=== PATIENT | female | born 1990 | race Caucasian/White ===

== ENCOUNTER 2016-08-30 09:42 | Outpatient (CLI) | payer OTHER, MEDICAID ==
[~2016-08-30] VITALS: Ht 160 cm; Wt 64.5 kg
[2016-08-30 10:17] VITALS: BP 103/62
[2016-08-30 10:33] LABS: AMNI OBC PASS; AMNISURE NEGATIVE (NEGATIVE)
[2016-08-30] MEDS ORDERED: iron (11:04)
[2016-08-30] MEDS ORDERED: PREN1TAB60 PO (11:04)
[2016-08-30] MEDS ORDERED: DOCO100C PO (11:04)
== END 2016-08-30 11:10 | disposition home or self-care (01) ==
LOC: LDOP 09:42
PROVIDERS: ATTEND Student in an Organized Health Care Education/Training Program
DX: O42.912 Preterm premature rupture of membranes, unspecified as to length of time between rupture and onset of labor, second trimester (principal); Z3A.27 27 weeks gestation of pregnancy
CPT/HCPCS: 59025; 84112; 99201; G0463